=== PATIENT | male | born 1985 | race African-American/Black ===

== ENCOUNTER 2017-05-09 12:40 | Emergency (ER) | payer SELFPAY ==
[~2017-05-09] VITALS: Ht 188 cm; Wt 91.0 kg
[2017-05-09] MEDS ORDERED: IBUPROFEN 600MG TABLET PO STA (12:55)
[2017-05-09] MEDS ORDERED: KETOROLAC 30MG/ML VIAL IV STA (12:55)
[2017-05-09] MEDS ORDERED: ONDANSETRON HCL 4MG/2ML VIAL IV STA ×3 (12:55→16:13)
[2017-05-09 13:09] LABS: BASOPHILS % 0.3 % (0.0-2.0); EOSINOPHILS % 0.3 % (0.0-5.0); HEMATOCRIT. 47.7 % (42.0-52.0); HEMOGLOBIN. 15.6 g/dL (14.0-18.0); LYMPHOCYTES % 14.4 % (20.0-50.0); MEAN CORPUSCULAR HEMOGLOBIN 27.3 pg (28.0-32.0); MEAN CORPUSCULAR VOLUME 83.4 fL (80.0-94.0); MEAN PLATELET VOLUME 9.8 fl (7.4-10.4); MONOCYTES % 6.3 % (2.0-8.0); NEUTROPHILS % 78.7 % (40.0-76.0); PLATELET 130 x1000/uL (130-400); RED BLOOD CELL COUNT 5.72 mill/uL (4.7-6.1); RED CELL DISTRIBUTION WIDTH 14.4 % (11.6-14.6)
[2017-05-09 13:20] LABS: CARBON DIOXIDE 25 mEq/L (21-32); CHLORIDE 109 mEq/L (98-107)
[2017-05-09 13:34] LABS: PROTHROMBIN TIME 10.8 sec
[2017-05-09] MEDS ORDERED: SODIUM CHLORIDE 0.9% 1,000 ML IV ONE (14:47)
[2017-05-09] MEDS ORDERED: MORPHINE SULFATE 4 MG/ML CPJ (NOT FOR IM USE) IV STA (16:13)
[2017-05-09 16:46] VITALS: BP 115/73
== END 2017-05-09 18:09 | disposition home or self-care (01) ==
LOC: ER 13:06
DX: R10.13 Epigastric pain (principal); R11.2 Nausea with vomiting, unspecified; F12.10 Cannabis abuse, uncomplicated
CPT/HCPCS: 36415; 74176; 80053; 83690; 85025; 85610; 96374; 96375; 96376; 99285; J1885; J2270; J2405; J7030; Z7610